=== PATIENT | male | born 1980 | race Caucasian/White ===

== ENCOUNTER 2017-12-29 01:06 | Emergency (ER) | payer OTHER ==
[~2017-12-29] VITALS: Ht 170.2 cm; Wt 68.2 kg
[2017-12-29 03:22] VITALS: BP 121/88
== END 2017-12-29 03:23 | disposition home or self-care (01) ==
LOC: EME 01:06
DX: S51.812A Laceration without foreign body of left forearm, initial encounter (principal); W22.8XXA Striking against or struck by other objects, initial encounter; Z23 Encounter for immunization
CPT/HCPCS: 99281; 99283